=== PATIENT | female | born 1960 | race African-American/Black ===

== ENCOUNTER 2017-07-21 14:28 | Emergency (ER) | payer BC ==
[~2017-07-21] VITALS: Ht 170.2 cm; Wt 102.5 kg
--- NOTE | ~2017-07-21 | EKG ---
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1960 Requested By: Harriet Hargrove Order Number: [id number] MD: Getachew Arredondo Measurements Intervals [place] Rate: 86 P: 36 [place]: 148 QRS: 9 QRSD: 88 T: 29 QT: 368 QTc: 440 Interpretive Statements Sinus rhythm RSR' in V1 or V2, probably normal variant Compared to ECG 10/30/2008 09:55:46 No significant change was found Electronically Signed On 07-23-2017 12:49:36 CDT by Getachew Arredondo [email or web address] <ELECTRONICALLY SIGNED> By: Getachew Arredondo MD, [facility] 07/23/17 1249 1555 1555 Getachew Arredondo MD, [facility] /EPI
[2017-07-21 15:37] LABS: BASOPHILS 1.4 % (0.0-2.0); EOSINOPHILS 7.5 % (0.0-3.0); HEMATOCRIT 34.8 % (37.0-47.0); LYMPHOCYTES 31.9 % (24.0-44.0); MCH 29.1 pg (26.0-34.0); MCHC 34.5 g/dL (28.0-37.0); MCV 84.5 fL (80.0-100.0); MONOCYTES 9.6 % (1.0-8.0); PLATELET COUNT 236 thou/uL (150-400); POLYS 49.6 % (36.0-66.0); RBC 4.11 mil/uL (4.20-5.00); RDW 14.4 % (10.5-14.5)
[2017-07-21 15:38] LABS: URINE BILIRUBIN NEGATIVE (Negative); URINE BLOOD NEGATIVE (Negative); URINE CLARITY CLEAR; URINE COLOR YELLOW; URINE GLUCOSE-RANDOM* NEGATIVE (Negative); URINE KETONES NEGATIVE (Negative); URINE LEUKOCYTES NEGATIVE (Negative); URINE NITRITE NEGATIVE (Negative); URINE PROTEIN (DIPSTICK) NEGATIVE (Negative); URINE UROBILINOGEN 0.2 E.U./dl (0.2-1.0)
[2017-07-21 15:55] LABS: ANION GAP 9 mmol/L (7-16); BUN 16 mg/dL (7-18); CALCIUM 9.4 mg/dL (8.5-10.1); CHLORIDE 107 mmol/L (98-107); CO2 26 mmol/L (21-32); CREATININE 1.5 mg/dL (0.6-1.0); GLUCOSE 99 mg/dL (74-106); POTASSIUM 3.6 mmol/L (3.5-5.1); SODIUM 142 mmol/L (136-145)
[2017-07-21 15:59] LABS: ALBUMIN 3.9 g/dL (3.4-5.0); SGOT 28 U/L (15-37); SGPT 29 U/L (30-65); TOTAL BILIRUBIN 0.4 mg/dL (<0.1-1.0); TOTAL PROTEIN 7.9 g/dL (6.4-8.2); TROPONIN-I < 0.04 ng/mL (<0.06)
[2017-07-21] MEDS ORDERED: FLOMAX0.4 MG PO (16:11)
[2017-07-21] MEDS ORDERED: COZAAR 25 MG TA25 M1 PO (16:11)
[2017-07-21] MEDS ORDERED: PROTONIX40 M1 PO (16:11)
[2017-07-21] MEDS ORDERED: VENTOLIN HFA 1818 GM INH (16:12)
[2017-07-21] MEDS ORDERED: PROAIR RESPICL90 MCG INH (16:12)
[2017-07-21] MEDS ORDERED: BEANO300 UNIT PO (16:39)
[2017-07-21] MEDS ORDERED: MIRALAX17 GM PO (16:39)
[2017-07-21 16:51] VITALS: BP 136/89
== END 2017-07-21 16:53 | disposition home or self-care (01) ==
LOC: ER 14:28
PROVIDERS: Physician Assistant
DX: R06.02 Shortness of breath (principal); K59.00 Constipation, unspecified; R14.1 Gas pain; G47.30 Sleep apnea, unspecified; Z91.19 Patient's noncompliance with other medical treatment and regimen; Z90.49 Acquired absence of other specified parts of digestive tract

== ENCOUNTER 2017-07-25 09:30 | Emergency (ER) | payer BC ==
[~2017-07-25] VITALS: Ht 167.6 cm; Wt 97.5 kg
--- NOTE | ~2017-07-25 | EKG ---
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: CONSTANCE : 1960 Requested By: Ian Espinoaz Order Number: [id number] MD: Getachew Arredondo Measurements Intervals [place] Rate: 93 P: 34 [place]: 140 QRS: 2 QRSD: 99 T: 26 QT: 359 QTc: 447 Interpretive Statements Sinus rhythm No significant abnormality Compared to ECG 07/21/2017 15:55:47 No significant changes Electronically Signed On 07-25-2017 17:45:39 CDT by Getachew Arredondo [email or web address] <ELECTRONICALLY SIGNED> By: Getachew Arredondo MD, [facility] 07/25/17 1745 0957 09 Getachew Arredondo MD, [facility] /EPI
[~2017-07-25 09:30] MED LIST: BEANO300 UNIT PO; COZAAR 25 MG TA25 M1 PO; FLOMAX0.4 MG PO; MIRALAX17 GM PO; PROAIR RESPICL90 MCG INH; PROTONIX40 M1 PO; VENTOLIN HFA 1818 GM INH
[2017-07-25 10:05] LABS: ABSOLUTE NEUTROPHILS 3.4 thou/uL (1.4-8.2); EOSINOPHILS 8.3 % (0.0-3.0); HEMATOCRIT 38.4 % (37.0-47.0); MCH 28.9 pg (26.0-34.0); MCHC 33.9 g/dL (28.0-37.0); MCV 85.1 fL (80.0-100.0); MONOCYTES 9.5 % (1.0-8.0); PLATELET COUNT 270 thou/uL (150-400); POLYS 56.2 % (36.0-66.0); RBC 4.51 mil/uL (4.20-5.00); RDW 14.6 % (10.5-14.5); URINE BILIRUBIN NEGATIVE (Negative); URINE BLOOD NEGATIVE (Negative); URINE CLARITY CLEAR; URINE COLOR YELLOW; URINE GLUCOSE-RANDOM* NEGATIVE (Negative); URINE KETONES NEGATIVE (Negative); URINE LEUKOCYTES-REFLEX NEGATIVE (Negative); URINE NITRITE-REFLEX NEGATIVE (Negative); URINE PROTEIN (DIPSTICK) NEGATIVE (Negative); URINE SPECIFIC GRAVITY 1.015 (1.005-1.035); URINE UROBILINOGEN 0.2 E.U./dl (0.2-1.0); WBC 6.1 thou/uL (4.0-11.0)
[2017-07-25] MEDS ORDERED: ASPIR 8181 MG PO (10:09)
[2017-07-25 10:12] LABS: ANION GAP 7 mmol/L (7-16); BUN 22 mg/dL (7-18); CALCIUM 9.7 mg/dL (8.5-10.1); CHLORIDE 104 mmol/L (98-107); CO2 26 mmol/L (21-32); CREATININE 1.5 mg/dL (0.6-1.0); GLUCOSE 133 mg/dL (74-106); SODIUM 137 mmol/L (136-145)
[2017-07-25 10:20] LABS: SGOT 34 U/L (15-37); SGPT 33 U/L (30-65); TOTAL BILIRUBIN 0.6 mg/dL (<0.1-1.0); TOTAL PROTEIN 8.3 g/dL (6.4-8.2); TROPONIN-I < 0.04 ng/mL (<0.06)
[2017-07-25] MEDS ORDERED: BENTYL 20 MG TA20 M1 PO (11:21)
[2017-07-25] MEDS ORDERED: GAS RELIEF80 MG PO (11:21)
[2017-07-25] MEDS ORDERED: MELATONIN1 MG PO (11:33)
[2017-07-25 11:49] VITALS: BP 124/76
== END 2017-07-25 11:50 | disposition home or self-care (01) ==
LOC: ER 09:30
PROVIDERS: Physician Assistant
DX: N17.9 Acute kidney failure, unspecified (principal); R14.1 Gas pain; Z90.49 Acquired absence of other specified parts of digestive tract

== ENCOUNTER → 2018-06-07 | Outpatient (CLI) | payer OTHER ==
[~2018-06-07] MED LIST changes: +ASPIR 8181 MG PO; +BENTYL 20 MG TA20 M1 PO; +GAS RELIEF80 MG PO; +MELATONIN1 MG PO
== END ==
LOC: PUL 09:23
DX: J63.2 Berylliosis (principal); M25.78 Osteophyte, vertebrae; Z90.49 Acquired absence of other specified parts of digestive tract